=== PATIENT | female | born 2000 ===

== ENCOUNTER 2021-02-01 16:44 | Emergency (ER) | payer MEDICAID, OTHER ==
[~2021-02-01] VITALS: Ht 167.6 cm; Wt 82.6 kg
[2021-02-01 16:49] VITALS: BP 115/55
== END 2021-02-01 19:08 | disposition left against medical advice (07) ==
LOC: ER 16:44
DX: O20.8 Other hemorrhage in early pregnancy (principal); Z3A.00 Weeks of gestation of pregnancy not specified; Z53.21 Procedure and treatment not carried out due to patient leaving prior to being seen by health care provider